=== PATIENT | female | born 1995 | race Caucasian/White ===

== ENCOUNTER 2024-05-13 17:06 | Emergency (ER) | payer OTHER ==
[~2024-05-13] VITALS: Ht 175.3 cm; Wt 68.9 kg
[2024-05-13 17:22] VITALS: PULSE 86; RESP 18; TEMP 98.7
[2024-05-13] MEDS: SODIUM CHLORIDE 0.9% 1000ML 1,000 ML IV ONE (18:14)
[2024-05-13] MEDS ORDERED: CETIRIZINE HCL10 MG PO (18:31)
[2024-05-13 18:45] VITALS: BP 121/68; PULSE 79; RESP 18; TEMP 98.4; O2SAT 100
== END 2024-05-13 18:45 | disposition home or self-care (01) ==
LOC: FSED 17:21
DX: J40 Bronchitis, not specified as acute or chronic (principal); J30.9 Allergic rhinitis, unspecified; R05.9 Cough, unspecified; F41.9 Anxiety disorder, unspecified; F32.A Depression, unspecified; Z11.52 Encounter for screening for COVID-19
CPT/HCPCS: 0223U; 80053; 81003; 83518; 85025; 87400; 99283; J7030